=== PATIENT | female | born 1950 | race African-American/Black ===

== ENCOUNTER → 2016-10-08 | Day surgery (SDC) | payer MEDICARE, BC ==
[~2016-10-08] MED LIST: AMARYL PO; AMARYL2 MG PO; ASPIRIN EC81 M1 PO; ASPIRIN PO; ASPIRIN81 M1 PO; ASPIRIN81 M2; BACTRIM DS TABL1 TAB PO; CERTAGEN PO; COUMADIN1 MG PO; CYMBALTA30 M1 PO; CYMBALTA30 MG PO; FLEXERIL10 MG PO; GLYNASE PO; IBUPROFEN800 MG PO; JANUVIA PO; JANUVIA50 MG PO; LANTUS SOLOSTAR3 ML SUBQ; LISINOPRIL PO; LISINOPRIL10 MG PO; MAXIDE PO; MAXZIDE 37.5 M1 EACH PO; METOPROLOL SUCC25 MG PO; MEVACOR PO; NOVOLOG100 U/M2 SUBQ; PHENERGAN PO; PRAVASTATIN SOD10 MG PO; PRAVASTATIN SOD80 MG PO; TRIAMTERENE-HC1 EAC1 PO; TRIAMTERENE/HCTZ PO; VICODIN 5/1 TAB 5/50 PO; VICODIN 5/500 T1 TAB PO; VITAMIN D1000 UNI1 PO; VITAMIN E400 UNI2 PO; VITAMIN PO; WELLBUTRIN PO; WELLBUTRIN SR150 MG PO; ZETIA PO
--- NOTE | ~2016-10-08 | OR ---
Unit #: [id number] #: [id number] Patient: ELIZABETH HERNANDEZ [id number] [address] [place], [place] [address] [id number] O MR#: [id number] NAME: ELIZABETH HERNANDEZ ROOM: Date of Procedure: 10/08/2016 Admission Date: 10/08/2016 Surgeon: Jay Mendoza M.D. : 1950 Attending Physician: Jay Mendoza M.D. Primary Care Physician: Tarsha Brito M.D. OPERATIVE REPORT PREOPERATIVE DIAGNOSES Colorectal cancer surveillance screening. The patient has personal history of colonic adenomas removed in the past. PROCEDURE PERFORMED Colonoscopy up to cecum with good preparation and visualization. POSTOPERATIVE DIAGNOSES Mild sigmoid and descending colon diverticulosis. Otherwise, normal examination up to cecum. The quality of the prep was good. No polyps, angiodysplasias, or hemorrhoids were seen. RECOMMENDATIONS Repeat colonoscopy in 5 years. SEDATION USED MAC. DESCRIPTION OF PROCEDURE Following detailed explanation of potential risks and complications of a colonoscopy, namely perforation, bleeding, and complication related to sedation, the patient was brought to GI lab and laid in the left lateral decubitus position. A digital rectal examination was performed, which was normal. Lubricated tip of the Olympus video colonoscope was inserted through the anus and advanced under direct vision. The scope was advanced past rectosigmoid into descending colon. Scant small diverticula were seen in this area. The scope tip was then navigated all the way up to cecum with visualization of the ileocecal valve and the appendiceal orifice. Preparation was good with good visualization and photodocumentation was obtained. Successive segments of the colonic mucosa were examined upon withdrawal and appeared unremarkable. There being no polyps, mass lesions, or AVMs. Other than the scant diverticula seen in the left side, no other abnormalities were noted. The patient did not have any hemorrhoids at anal verge. The scope was then withdrawn and the patient returned to the recovery area. She tolerated the procedure without any postprocedure complications. Dictated by... Jay Mendoza M.D. Unit #: [id number] #: [id number] Patient: ELIZABETH HERNANDEZ MYRNA/ying TD: 10/08/2016 12:38 JOB #: [id number] OPERATIVE REPORT X Jay Mendoza MD PROCEDURE OPERATIVE NOTE
== END | disposition home or self-care (01) ==
LOC: COPS 10:21
DX: Z12.11 Encounter for screening for malignant neoplasm of colon (principal); Z86.010 Personal history of colon polyps; K57.30 Diverticulosis of large intestine without perforation or abscess without bleeding; E11.9 Type 2 diabetes mellitus without complications; I10 Essential (primary) hypertension; E78.5 Hyperlipidemia, unspecified; Z79.4 Long term (current) use of insulin; Z79.82 Long term (current) use of aspirin; I69.854 Hemiplegia and hemiparesis following other cerebrovascular disease affecting left non-dominant side
CPT/HCPCS: 82947

== ENCOUNTER 2016-12-13 13:44 | Observation (INO) | payer MEDICARE, BC ==
--- NOTE | ~2016-12-13 | CR72 ---
[facility] A Service of [facility] RADIOLOGY TEXT RESULTS PATIENT: ELIZABETH HERNANDEZ LOCATION: [facility] 56- : [birth year] UNIT #: [id number] AGE: [address]: Alfredo Le MD SEX: F ORDER DR: [id number] [facility] [address] [place], [place] [address] [id number] I MR#: [id number] Acc #: [id number] NAME: ELIZABETH HERNANDEZ : 1950 SEX: F STUDY DATE/TIME: 12/13/2016 14:27 UNIT: [facility] ROOM: [facility] STUDY DESCRIPTION: CR Chest Single View Portable Attending Physician: Alfredo Le M.D. Ordering Physician: Rock Kidd M.D. Primary Care Physician: Tarsha Brito M.D. MEDICAL IMAGING REPORT This report is preliminary unless electronic signature is present EXAM AP portable chest. DATE OF EXAM 12/13/2016 COMPARISON 01/23/2013 HISTORY SUPPLIED Chest pain intermittently for 3 days. FINDINGS AP portable view is obtained. The cardiovascular configuration remains normal, and the lungs are clear. There are calcifications in the right lung, and the right paratracheal area reflective of old healed granulomatous disease. CONCLUSION 1. No active disease. Dictated by... Tono Lizarraga M.D. THIS IS AN ELECTRONICALLY VERIFIED REPORT Tono Lizarraga M.D. at 12/14/2016 4:41 PM KRISTIN/mitchel TD: 12/13/2016 19:16 JOB #: [id number] MEDICAL IMAGING REPORT Page 1 of 1 COPY
--- NOTE | ~2016-12-13 | EKG ---
PATIENT: ELIZABETH HERNANDEZ UNIT #: [id number] Ventricular Rate: 88 BPM Atrial Rate: 88 BPM P-R Interval: 168 ms QRS Duration: 74 ms Q-T Interval: 406 ms QTC Calculation(Bezet): 491 ms P [place]: 63 degrees Calculated R [place]: 39 degrees Calculated T [place]: 80 degrees Diagnosis Line: Normal sinus rhythm Diagnosis Line: Prolonged QT Diagnosis Line: Abnormal ECG Diagnosis Line: When compared with ECG of 13-DEC-2016 13:50, Diagnosis Line: (unconfirmed) Diagnosis Line: No significant change was found Diagnosis Line: Confirmed by SUZETTE LEUNG MD ([id number]) on 12/14/2016 Diagnosis Line: 8:09:18 PM INTERPRETING MD: XOCHITL LADD
--- NOTE | ~2016-12-13 | HP ---
Unit #: [id number] #: [id number] Patient: ELIZABETH HERNANDEZ [id number] [address] [place], [place] [address] [id number] I MR#: [id number] NAME: ELIZABETH HERNANDEZ ROOM: 565 Age: 66 Sex: F Admission Date: 12/13/2016 : 1950 Attending Physician: Alfredo Le M.D. Primary Care Physician: Tarsha Brito M.D. HISTORY AND PHYSICAL HISTORY OF PRESENT ILLNESS This is a 66-year-old female who is admitted with the complaint of chest pain. She had left inframammary chest tightness that did not radiate to her neck, arm, or jaw. The chest pain has been ongoing for a few months lasting three to four minutes. Today, her chest pain worsened where it was lasting longer in duration up to 10-15 minutes. The chest pain was made worse with activity. There were no alleviating factors. Today, the chest pain was associated with nausea and dyspnea. She had no diaphoresis, palpitations, syncope, or near syncope. In the emergency room, troponin was initially negative with no acute changes on EKG. She has risk factors for ischemic heart disease including hypertension, hyperlipidemia, diabetes, history of nicotine abuse, and family history of heart disease. She had a stress test in September 2012 which showed no ischemia and normal left ventricular systolic function. She was hypokalemic with a potassium of 3.1. PAST MEDICAL HISTORY 1. Stress test on September 27, 2016, showed no ischemia with an ejection fraction of 72%. 2. Hypertension. 3. Hyperlipidemia. 4. Diabetes mellitus type 2. 5. Transient ischemic attack in . 6. Former smoker. PAST SURGICAL HISTORY 1. Tonsillectomy. 2. Cholecystectomy. 3. Appendectomy. 4. Cervical diskectomy. SOCIAL HISTORY The patient is and cares for her ill . She quit smoking 15 years ago but smoked less than a half a pack a day. She denies illicit drug and alcohol use. She states she is very active and she bowls on a regular basis without any episodes of chest pain. FAMILY HISTORY Father is currently living and has no history of heart disease. Mother is and had no history of coronary artery disease. She has a sister who had a heart attack at age 65. ALLERGIES Unit #: [id number] #: [id number] Patient: ELIZABETH HERNANDEZ Carbamazepine and naproxen. HOME MEDICATIONS 1. Aspirin 81 mg daily. 2. Cymbalta 30 mg daily. 3. Zetia 10 mg daily. 4. Pravastatin 80 mg daily. 5. Lisinopril 10 mg daily. 6. Maxzide 37.5/25 mg daily. 7. NovoLog subcutaneous t.i.d. a.c. meals. 8. Lantus 70 units subcutaneous at bedtime. 9. Vitamin E 800 units daily. 10. Vitamin D 1000 units daily. REVIEW OF SYSTEMS CONSTITUTIONAL: Negative for fever or chills. Has no weight gain or weight loss. HEENT: No headache, hearing or visual changes, or difficulty with swallowing. No dizziness. CARDIOVASCULAR: Has chest pain as described in the History of Present Illness. Denies palpitations. No paroxysmal nocturnal dyspnea or orthopnea. No syncope or near syncope. RESPIRATORY: Positive for dyspnea that accompanies chest pain. No cough or hemoptysis. GASTROINTESTINAL: No abdominal pain, nausea, or vomiting. No constipation or melena. EXTREMITIES: Negative for lower extremity edema. PHYSICAL EXAMINATION VITAL SIGNS: Blood pressure 117/66, heart rate 92, and temperature 98. BMI is 31. GENERAL: This is a pleasant 66-year-old obese female who is in no acute respiratory distress. NEUROLOGICAL: She is awake, alert, and oriented. There are no focal weaknesses. NECK: Trachea is midline. No thyromegaly or lymphadenopathy. No jugular venous distention. HEART: S1 and S2 heart sounds are normal. No murmurs, rubs, or clicks. Regular rate and rhythm. LUNGS: Without rales, rhonchi, or wheezing. ABDOMEN: Soft and nontender with bowel sounds present. EXTREMITIES: Without leg edema. SKIN: Warm and dry. DIAGNOSTIC STUDIES LABORATORY: Hemoglobin 14, hematocrit 42, platelet count 273,000, and white count 7.9. Sodium 136, potassium 3.1, BUN 17, creatinine 0.9, and glucose 152. Troponin less than 0.05 x2. IMAGING: Chest x-ray shows no active disease. CARDIOLOGY: EKG shows sinus tachycardia with a rate of 101 beats per minute with right atrial enlargement. There are septal Q waves that are unchanged from previous EKGs. IMPRESSION 1. Chest pain may be ischemic in origin. 2. Hypertension. Unit #: [id number] #: [id number] Patient: ELIZABETH HERNANDEZ 3. Hyperlipidemia. 4. Diabetes mellitus type 2. 5. Recent negative stress test in September 2016. 6. Preserved left ventricular systolic function with an ejection fraction of 72%. 7. Hypokalemia. PLAN 1. The patient has multiple risk factors for ischemic heart disease. She has rest and exertional angina. Initial troponin is negative. Recent stress test was also negative. Will recommend cardiac catheterization to rule out coronary artery disease. This has been explained to the patient and she is agreeable. 2. Will start on anticoagulation with aspirin and Lovenox. 3. Add nitrates and beta blockers to DECLAN inhibitor. 4. Continue statin. Lipid profile will be obtained. 5. Obtain 2D echocardiogram to evaluate left ventricular systolic function. 6. Further recommendations pending results of the cardiac catheterization. 1. Dictated by Evita BahREstrellita for Maritza Thompson/kaushal TD: 12/13/2016 20:10 JOB #: [id number] HISTORY AND PHYSICAL Page 1 of 1 X Kwaku Wallis APRN X HISTORY AND PHYSICAL
--- NOTE | ~2016-12-13 | EKG ---
PATIENT: ELIZABETH HERNANDEZ UNIT #: [id number] Ventricular Rate: 101 BPM Atrial Rate: 101 BPM P-R Interval: 160 ms QRS Duration: 74 ms Q-T Interval: 370 ms QTC Calculation(Bezet): 479 ms P [place]: 76 degrees Calculated R [place]: 51 degrees Calculated T [place]: 89 degrees Diagnosis Line: Sinus tachycardia Diagnosis Line: Right atrial enlargement Diagnosis Line: Cannot rule out Septal infarct (cited on or before Diagnosis Line: 03-NOV-2014) Diagnosis Line: Abnormal ECG Diagnosis Line: When compared with ECG of 03-NOV-2014 10:36, Diagnosis Line: No significant change was found Diagnosis Line: Confirmed by SUZETTE LEUNG MD ([id number]) on 12/14/2016 Diagnosis Line: 8:02:18 PM INTERPRETING MD: XOCHITL LADD
[~2016-12-13 13:44] MED LIST changes: -VITAMIN D1000 UNI1 PO; -VITAMIN E400 UNI2 PO
[2016-12-13 14:42] LABS: POC - CKMB 2.7 ng/mL (0.0-7.9); POC - TROPONIN <0.05 ng/mL (<=0.05)
[2016-12-13 14:53] LABS: BASOPHIL# 0.1 X10e3 (0-0.3); BASOPHIL% 0.7 % (0-2.5); EOSINOPHIL# 0.3 X10e3 (0-0.7); EOSINOPHIL% 3.3 % (0.0-7.0); LYMPHOCYTE# 3.9 X10e3 (1.0-3.5); LYMPHOCYTE% 49.4 % (17.0-45.0); MEAN CELL VOLUME 90.2 FL (83-96); MEAN CORPUSCULAR HEMOGLOBIN 30.1 PG (28-34); MEAN CORPUSCULAR HGB CONC 33.4 g/dL (30-36); MONOCYTE# 0.6 X10e3 (0-1.0); MONOCYTE% 7.4 % (3.0-12.0); NEUTROPHIL# 3.1 X10e3 (1.5-7.1); NEUTROPHIL% 39.2 % (40-75); PLATELET COUNT 273 X10e3 (140-420); RED BLOOD COUNT 4.66 X10e (3.90-5.30); RED CELL DISTRIBUTION WIDTH 13.9 % (11.0-15.5); WHITE BLOOD COUNT 7.9 X10e3 (4.0-10.5)
[2016-12-13 14:57] LABS: DIFF IND NO
[2016-12-13] MEDS ORDERED: VITAMIN D1000 UNI1 PO (15:19)
[2016-12-13] MEDS ORDERED: VITAMIN E400 UNI2 PO (15:19)
[2016-12-13 15:31] LABS: ALKALINE PHOSPHATASE 74 U/L (32-92); ALT (SGPT) 28 U/L (10-40); AST (SGOT) 28 U/L (10-42); BILIRUBIN, DIRECT <0.1 mg/dL (0.0-0.2); BILIRUBIN,INDIRECT 0.2 mg/dL (0.0-0.9); BILIRUBIN,TOTAL 0.3 mg/dL (0.2-2.0); BLOOD UREA NITROGEN 14 mg/dL (9-23); BUN/CREATININE RATIO 15.55; CALCIUM SERUM 9.4 mg/dL (8.4-10.2); CARBON DIOXIDE 25 mmol/L (22-31); CHLORIDE 102 mmol/L (100-111); CREATININE SERUM 0.9 mg/dL (0.6-1.4); GLOM FILT RATE Estimated 76.7 mL/min (>60); GLUCOSE FASTING 152 mg/dL (70-110); POTASSIUM 3.1 mmol/L (3.5-5.1); PROTEIN TOTAL SERUM 7.4 g/dL (6.0-8.3); SODIUM 136 mmol/L (135-145)
[2016-12-13 16:15] LABS: POC - CKMB 2.4 ng/mL (0.0-7.9); POC - TROPONIN <0.05 ng/mL (<=0.05)
[2016-12-14 04:55] LABS: HEMATOCRIT 40.7 % (35.0-45.0); HEMOGLOBIN 13.4 gm/dL (12.0-16.0); MEAN CORPUSCULAR HGB CONC 32.9 g/dL (30-36); MEAN PLATELET VOLUME 6.9 FL (6.5-11.5); RED BLOOD COUNT 4.47 X10e (3.90-5.30); RED CELL DISTRIBUTION WIDTH 14.3 % (11.0-15.5); WHITE BLOOD COUNT 8.2 X10e3 (4.0-10.5)
[2016-12-14 05:22] LABS: PARTIAL THROMBOPLASTIN TIME 32.3 SECONDS (23.5-31.3); PROTHROMBIN TIME (PATIENT) 10.7 SECONDS (9.6-11.5)
[2016-12-14 05:42] LABS: BUN/CREATININE RATIO 15.55; CREATININE SERUM 0.9 mg/dL (0.6-1.4); GLOM FILT RATE Estimated 76.7 mL/min (>60); MAGNESIUM 1.8 mg/dL (1.6-3.0); POTASSIUM 3.6 mmol/L (3.5-5.1)
== END 2016-12-14 18:45 | disposition home or self-care (01) ==
LOC: CED 13:44 → CEDOF 17:20 → C5C 17:20 → CED 17:20 → CEDOF 17:20 → CED 17:47 → CEDOF 17:47 → C5C 18:54
PROVIDERS: Emergency Medicine; Internal Medicine Cardiovascular Disease
DX: R07.89 Other chest pain (principal); I25.10 Atherosclerotic heart disease of native coronary artery without angina pectoris; I11.9 Hypertensive heart disease without heart failure; E11.9 Type 2 diabetes mellitus without complications; I08.3 Combined rheumatic disorders of mitral, aortic and tricuspid valves; Z79.4 Long term (current) use of insulin; Z86.73 Personal history of transient ischemic attack (TIA), and cerebral infarction without residual deficits; E78.5 Hyperlipidemia, unspecified; E87.6 Hypokalemia; Z87.891 Personal history of nicotine dependence; Z82.49 Family history of ischemic heart disease and other diseases of the circulatory system; Z79.82 Long term (current) use of aspirin; Z90.49 Acquired absence of other specified parts of digestive tract; Z88.6 Allergy status to analgesic agent
CPT/HCPCS: 36415; 71010; 80048; 80061; 80076; 82553; 82947; 83735; 84443; 84484; 85025; 85027; 85610; 85730; 93005; 93306; 96372; 99285; C1769; C1887; C1894; G0378; J1644; J1650; J1815; J2250; J3010